=== PATIENT | female | born 1955 | race Caucasian/White ===

== ENCOUNTER → 2022-06-29 10:46 | Outpatient (CLI) | payer MEDICARE, SELFPAY ==
--- NOTE | 2022-06-29 10:53 | XR_ITS ---
FINAL REPORT CLINICAL HISTORY: hammertoes FINDINGS: RIGHT FOOT Three views of the right foot demonstrate no acute fracture or dislocation. There is hammertoe deformity of the 2nd, 3rd and 4th digits. The soft tissues are unremarkable. IMPRESSION: Hammertoe deformity of 2nd 3rd and 4th digits. No acute bony abnormality. Reviewed, Interpreted and Dictated by Papa Brenner MD Transcribed by Kate Hunter Authenticated and [facility]
--- NOTE | 2022-06-29 10:53 | XR_ITS ---
FINAL REPORT CLINICAL HISTORY: hammertoes FINDINGS: LEFT FOOT Three views of the left foot demonstrate no acute fracture or dislocation. There is hammertoe deformity of the 2nd, 3rd and 4th digits. An orthopedic screw is present in the distal 1st metatarsal with postoperative changes from bunionectomy. The soft tissues are unremarkable. IMPRESSION: Hammertoe deformity of 2nd, 3rd and 4th digits. Postoperative change from bunionectomy. No acute bony abnormality. Reviewed, Interpreted and Dictated by Papa Brenner MD Transcribed by Kate Hunter Authenticated and [facility]
--- NOTE | 2022-06-29 12:15 | ECG_ITS ---
APPROVED REPORT Exam: Resting ECG HR:49 bpm ECG Measurements Heart Rate 49 AXES TX 164 P 56 QRSd 105 QRS -10 QT 409 T 32 QTc 378 Conclusion SINUS BRADYCARDIA LOW QRS VOLTAGE IN PRECORDIAL LEADS [QRS DEFLECTION < 1.0 mV IN CHEST LEADS] PATTERN CONSISTENT WITH PULMONARY DISEASE INCOMPLETE RIGHT BUNDLE BRANCH BLOCK [90+ ms QRS DURATION, TERMINAL R IN V1/V2, 40+ ms S IN I/aVL/V4/V5/V6] ABNORMAL ECG UNCONFIRMED REPORT Electronically signed by : Wang Sterling MD 07/01/2022 16:33:08
--- NOTE | 2022-06-29 12:31 | XR_ITS ---
FINAL REPORT CLINICAL HISTORY: pre op testing, patient states no chest pain, so soa, no high blood pressure FINDINGS: TWO-VIEW CHEST The heart size is normal. The mediastinum is normal. The lungs are clear. There is no pneumothorax. IMPRESSION: No acute cardiopulmonary process. Reviewed, Interpreted and Dictated by Papa Brenner MD Transcribed by Ivy Holt Authenticated and [facility]
[2022-06-29 13:05] LABS: Basophils # 0.1 K/mm3 (0-0.2); Eosinophils # 0.1 K/mm3 (0.0-0.4); Eosinophils % 1.7 % (0.1-12.0); Hemoglobin 13.8 g/dL (12.2-16.2); Lymphocytes # 1.7 K/mm3 (0.7-4.5); Mean Corpuscular HGB Conc 31.4 g/dL (31.8-35.4); Mean Corpuscular Hemoglobin 30.6 pg (27.0-31.2); Mean Corpuscular Volume 97.4 fl (81-99); Mean Platelet Volume 8.5 fl (7.4-10.4); Monocytes # 0.3 K/mm3 (0.1-1.0); Monocytes % 6.2 % (1.7-9.3); Neutrophils # 2.4 K/mm3 (1.8-7.8); Neutrophils % 54.1 % (37.0-80.0); Platelet Count 239 K/mm3 (142-424); Red Blood Count 4.52 M/mm3 (4.20-5.40); White Blood Count 4.5 K/mm3 (4.8-10.8)
[2022-06-29 14:39] LABS: Alanine Aminotransferase 12 U/L (12-78); Albumin Level 4.3 g/dl (3.5-5.0); Albumin/Globulin Ratio 1.7 (1.1-1.8); Alkaline Phosphatase 82 U/L (38-126); Anion Gap 11.4 mEq/L (5-15); Aspartate Amino Transferase 29 U/L (14-36); Bilirubin,Total 0.7 mg/dl (0.2-1.3); Blood Urea Nitrogen 14 mg/dl (7-17); Calcium 8.9 mg/dl (8.4-10.2); Carbon Dioxide 27 mmol/L (22.0-30.0); Chloride 104 mmol/L (98-107); Estimated Glomerular Filt Rate 84 ml/min (>60); GFR (African American) 101 ML/MIN (>60); Globulin 2.6 g/dL (1.3-3.2); Glucose 90 mg/dl (74-100); Potassium 4.4 mmoL/L (3.5-5.1); Sodium 138 mmol/L (136-145); Total Protein,Serum 6.9 g/dl (6.3-8.2)
== END ==
PROVIDERS: PCP Internal Medicine; Visit Provider Podiatrist
DX: Z01.818 Encounter for other preprocedural examination (principal); M20.42 Other hammer toe(s) (acquired), left foot; M20.41 Other hammer toe(s) (acquired), right foot
CPT/HCPCS: 36415; 71046; 73630; 80053; 85025; 93005

== ENCOUNTER 2022-07-08 11:22 | Day surgery (SDC) | payer MEDICARE, SELFPAY ==
[2022-07-05 10:30] VITALS: BMI 26.0
[2022-07-08] VITALS (10 sets, daily range): BP systolic 120–151; BP diastolic 62–85; PULSE 49–68; RESP 10–18; TEMP 36.1–43; O2SAT 96–99
--- NOTE | 2022-07-08 12:46 | P.PN_ITS ---
[facility] Disclaimer: The information contained in this section may have been updated after the patient was seen, as this information can be updated by other users. Medical History Acquired hammer toe Acquired hammer toe Preop testing Surgical History History of bunionectomy Family History Other No significant family history Social History Smoking Status: Never smoker second hand exposure: No alcohol intake: never substance use type: denies use current occupational status: retired Travel in the last 8 weeks: Inside the [facility] Anesthesia Checklist Patient Identification Patient Identification: Arm Band and Verbal (Name & ) Structural Data Admitted From: Home Planned Operative Procedure/s: Left 2nd Hammer Toe Correction Consent for Planned Operative Procedure(s) Verified: Yes Verified Documents: Surgical Consent NPO Status Verified Time NPO: 00:00 Additional verifications Anesthesia Reactions: No Hx Blood Transfusions: No Blood Transfusion Reaction: No Airway Assessment C-Spine Mobility Assessed: Yes TMJ Mobility Assessed: Yes Dentition: Good Dentition Neurological Assessment Level of Consciousness: Awake, Alert and Appropriate Anesthesia Plan ASA Class: II Anesthesia Type: General
--- NOTE | 2022-07-08 14:16 | P.PNANES_ITS ---
[facility] Anesthesia Record Part II Anesthesia Record Part II Anesthesia Complications:: None
--- NOTE | 2022-07-08 14:17 | EXP.ANES.I ---
[facility] Anesthesia Record Part I Anesthesia Record I Intake, IV Amount: 900 Estimated blood loss (mL): 5 Urine output (mL): 0 Blood Pressure: 150/75 SaO2: 96 Pulse Rate: 68 Respiratory Rate: 10 Temperature: 97.1 F Patient is:: Drowsy and Stable Stable to PACU at:: 14:15
--- NOTE | 2022-07-08 14:23 | EXP.OP.NOTE ---
Date of procedure: 07/08/22 Pre-op Diagnosis:: Left 2nd hammertoe, painful Post-op Diagnosis:: Same Procedure performed:: Left 2nd hammertoe correction Surgeon:: Luis Miguel Cadet DPM VICE PRESIDENT OF CONSULTING SERVICES:: Stephen Ojeda Anesthesia: GETA and other (digital block 0.5% marcaine, 10cc) Estimated blood loss (mL): 1 Operative findings:: expected Operative note:: Pre-op: The patient has tried modification of shoe gear, taping, strapping, inserts, ice, elevation, and NSAIDs. After a long discussion with the patient in regards to the conservative versus surgical treatment for the arthritic deformity, the patient has elected to proceed with surgery because they have failed conservative treatment and continue to have pain and worsening symptoms affecting daily activities. The patient has been instructed on the planned procedure, all risk versus benefits of the procedure discussed. These include but are not limited to: bleeding, infection, nerve and blood vessel damage, need for further surgery, delay in healing of soft tissue or bone, failure of bones to heal, non-union, mal-union, failure of the implant, prolonged pain and recovery, CPRS/RSD, DVT and anesthetic complications. No guarantees were given. All questions fully answered. The patient verbalized understanding and agreed to proceed with surgery. Written consent was obtained. Necessary labs and pre-op testing ordered: CBC, CMP, CXR, EKG, covid. Patient will need medical clearance. Rx for Phenergan; Hydrocodone; OTC Ibuprofen (package directions) Plan surgery for: Attention was directed to the second toe. A dorsal linear linear logical incision was made on the dorsal aspect of the proximal inner phalangeal joint and extended to the metatarsal phalangeal joint. Care was taken to preserve protect vital neurovascular structures bleeders cauterized with Bovie as necessary. At this point a tenotomy and capsulotomy was performed of the proximal to phalangeal joint of the second toe. Then the head of the proximal phalanx was resected with sagittal bone saw and rongeurs and solid rongeurs were also used to resect the cartilaginous base of the middle phalanx. Attention directed at the metatarsal phalangeal joint and freed up of soft tissue attachments and contractures at that level with McClamary elevator. Fixation was accomplished by directing a K wire through the middle and distal phalanges of the distal aspect of the toe and then retrograde fashion back through the proximal phalanx and into the metatarsal in a rectus position. Irrigated with Sterile Saline and Closed the Toe in Layers in a Rectus Position Using 3-0 Vicryl and 3-0 Nylon. Dressed the surgical wounds with Xeroform or Adaptic based on any allergy to Betadine. Then applied gauze and 4 x 4's Kerlix and elastic bandage; Dispense surgery shoe in post op area. Condition: stable Disposition: PACU Specimens:: none Complications:: none
--- NOTE | 2022-07-11 07:35 | EXP.ANES.II ---
[facility] Anesthesia Record Part II Anesthesia Record Part II Discharge Time: 14:45 Destination: Surgical Day Care (OP Surgery) PACU nurse assessment reviewed?: Yes Patient Condition:: Good Anesthesia Complications:: None Swallowing reflex intact?: Yes Cyanosis?: No Blood Pressure: 129/75 Pulse Rate: 58 Temperature: 97 F Mental Status: Alert & Oriented Pain level:: 0 Nausea and/or vomitting:: None Intake, IV Amount: 0
[2022-07-11 07:36] VITALS: BP 129/75; PULSE 58; TEMP 36.1
== END 2022-07-08 15:18 | disposition home or self-care (01) ==
PROVIDERS: PCP Internal Medicine; Visit Provider Podiatrist
DX: M20.42 Other hammer toe(s) (acquired), left foot (principal); M79.675 Pain in left toe(s)
CPT/HCPCS: 28285; 96374; J0131; J2405